=== PATIENT | male | born 1955 | race Caucasian/White ===

== ENCOUNTER → 2017-12-26 | Outpatient (CLI) | payer OTHER ==
[~2017-12-26] MED LIST: REGADENOSON 0.4 MG/5 ML DISP.SYRIN. IV ONE
--- NOTE | 2017-12-26 18:02 | PCVCIMAG ---
APPROVED REPORT Imaging Protocol: Rest Tc-99m/Stress Tc-99m 1 day Study performed: 12/26/2017 12:38:09 Indication: Postural dizziness with presyncope, Atypical Angina, Pending back surgery Patient Location: Out-Patient Stress Nurse: Irais Calhoun RN OR Tech:Lora Denis [facility] Ht: 5 ft 3 in Wt: 134 lbs BSA: 1.63 m2 HR: 53 bpm BP: 137/95 mmHg BMI: 23.7 Rhythm: SR, PVC's Medical History Medical History: HTN, Former Smoker Medications: Amlodipine-Benazepril, Xanax, Flexeril Allergies: Sulfa Pretest Chest Pain Characteristics: No chest pain Exercise History: Physically active Physical Disabilities: Back Resting Data Rest SPECT myocardial perfusion imaging was performed in supine position 45 minutes following the intravenous injection of 10.21 mCi of Tc-99m Sestamibi. Time of rest injection: 1150 Date: 12/26/2017 Administration Route: IV Administration Site: Right AC Pharmacologic Stress Pharmacologic stress test was performed by injecting Regadenoson 0.4 mg IV push over 10-15 seconds immediately followed by the intravenous injection of 32 mCi of Tc-99m Sestamibi. Time of stress injection: 1310 Date: 12/26/2017 Administration Route: IV Administration Site: Right AC Gated Stress SPECT was performed 45 minutes after stress injection. The images were gated to evaluate regional wall motion and calculate left ventricular ejection fraction. Stress Test Details Stress Test: Pharmacologic stress was paired with low level exercise. Reason for pharmacologic stress test: physical limitation. HRMax Heart Rate (APMHR): 158 bpm Resting HR: 53 bpmTarget HR (85% APMHR): 134 bpm Max HR Achieved: 100 bpm % of APMHR: 63 Recovery HR: 66 bpm BP Resting BP: 137/95 mmHg Recovery BP: 131/90 mmHg ECG Resting ECG: Sinus Rhythm Stress ECG: Sinus Rhythm Recovery ECG: Sinus Rhythm Clinical Reason for Termination: Completed protocol Stress Symptoms: Lightheaded Exercise duration: 4 min 00 sec Exercise capacity: 1.6 METs Symptoms resolved during recovery. Stress ECG Conclusion ECG: Non-ischemic Study Quality Study: Good Study Data Post stress, the left ventricular ejection was 71%.. SSS: 0 SRS: 1 SDS: 0 TID = 0.88. Perfusion No evidence of stress induced ischemia or prior myocardial infarction. Wall Motion Normal left ventricular size and function with no regional wall motion abnormalities. Nuclear Conclusion No evidence of stress induced ischemia or prior myocardial infarction. Normal left ventricular size and function with no regional wall motion abnormalities. Post stress, the left ventricular ejection was 71%. No prior study available for comparison. Interpreted by: Wander Morgan MD Electronically Approved: 12/26/2017 16:37:22 <Conclusion> ECG: Non-ischemic
--- NOTE | 2017-12-26 18:25 | PCVCIMAG ---
APPROVED REPORT Study performed: 12/26/2017 10:29:33 EXAM: Comprehensive 2D, Doppler, and color-flow Echocardiogram Patient Location: Echo lab Status: routine BSA: 1.63 HR: 56 bpmBP: 120/82 mmHg Rhythm: NSR Other Information Study Quality: Adequate Risk Factors: Cardiac Risk Factors: HTN Indications Tachycardia Atypical angina 2D Dimensions IVSd: 10.12 (7-11mm) LVDd: 45.46 mm PWd: 9.08 (7-11mm)Ascending Ao: 33.24 (22-36mm) LVDs: 29.84 (25-40mm) Left Atrium: 33.26 (27-40mm) Aortic Root: 32.83 mm LV Single Plane 4CH: 57.51 % LV Single Plane 2CH: 64.78 % Biplane EF: 60.5 % Volumes Left Atrial Volume (Systole) Single Plane 4CH: 36.31 mLSingle Plane 2CH: 42.58 mL LA ESV Index: 27.00 mL/m2 Aortic Valve AoV Peak Yovany.: 1.24 m/s AO Peak Gr.: 6.22 mmHgLVOT Max P.12 mmHg LVOT Max V: 1.01 m/s AI Vmax: 4.83 m/s AI [place]: 2.03 m/s2 AI PHT: 695.20 ms Mitral Valve E/A Ratio: 1.5 MV Decel. Time: 268.59 ms MV E Max Yovany.: 0.46 m/s MV A Yovany.: 0.31 m/s MV PHT: 77.89 ms IVRT: 83.04 ms Pulmonary Valve PV Peak Yovany.: 0.92 m/sPV Peak Gr.: 3.41 mmHg Pulmonary Vein P Vein S: 0.26 m/sP Vein A: 0.27 m/s P Vein D: 0.45 m/sP Vein A Dur.: 128.0 msec P Vein S/D Ratio: 0.58 Tricuspid Valve TR Peak Yovany.: 2.10 m/s TR Peak Gr.: 17.56 mmHg Left Ventricle The left ventricle is normal size. There is normal LV segmental wall motion. There is normal left ventricular wall thickness. Left ventricular systolic function is normal. The left ventricular ejection fraction is within the normal range. LVEF is 60-65%. Grade II - pseudonormal filling dynamics. Right Ventricle The right ventricle is normal size. The right ventricular systolic function is normal. Atria The left atrium size is normal. The right atrium size is normal. Aortic Valve The aortic valve is normal in structure. Mild aortic regurgitation. There is no aortic valvular stenosis. Mitral Valve Mitral valve leaflets are mildly thickened. Mild mitral regurgitation. No evidence of mitral valve stenosis. Tricuspid Valve The tricuspid valve is normal in structure. Mild tricuspid regurgitation with PAP of 25 mmHg. Pulmonic Valve The pulmonary valve is normal in structure. Mild pulmonic regurgitation. Great Vessels The aortic root is normal in size. IVC is normal in size and collapses >50% with inspiration. Pericardium There is no pericardial effusion. There is no pleural effusion. <Conclusion> The left ventricle is normal size. LVEF is 60-65%. Grade II - pseudonormal filling dynamics. The left atrium size is normal. The aortic valve is normal in structure. Mild aortic regurgitation. Mild mitral regurgitation. Mild tricuspid regurgitation with PAP of 25 mmHg. The aortic root is normal in size. There is no pericardial effusion.
== END | disposition home or self-care (01) ==
LOC: PCVCIMAG 10:53
PROVIDERS: ATTEND Internal Medicine Cardiovascular Disease
DX: I20.9 Angina pectoris, unspecified (principal); R55 Syncope and collapse; R42 Dizziness and giddiness; I10 Essential (primary) hypertension; Z87.891 Personal history of nicotine dependence
CPT/HCPCS: 78452; 93017; 93306; A9500; J2785